=== PATIENT | female | born 1935 | race Hispanic/Latino ===

== ENCOUNTER → 2018-07-27 | Outpatient (CLI) | payer MEDICARE | END | disposition home or self-care (01) | LOC: RAH 08:13 | PROVIDERS: ATTEND Internal Medicine Cardiovascular Disease | DX: R94.31 Abnormal electrocardiogram [ECG] [EKG] (principal); I07.1 Rheumatic tricuspid insufficiency; I31.3 Pericardial effusion (noninflammatory); R60.0 Localized edema | CPT/HCPCS: 93306; 93970 ==